=== PATIENT | female | born 1945 | race Caucasian/White ===

== ENCOUNTER 2018-04-03 05:40 | Day surgery (SDC) | payer MEDICARE, OTHER ==
[~2018-04-03] VITALS: Ht 157.5 cm; Wt 57.1 kg
[~2018-04-03 05:40] MED LIST: CALTRATE 600 +1 EAC1 PO; FLAXSEED OIL1000 M1 PO; SIMVASTATIN40 MG PO; VITAMIN B122500 MCG PO; VITAMIN D3400 UNI1 PO; VITAMIN E400 UNI6 PO
[2018-04-03] MEDS ORDERED: KEFLEX500 MG PO (06:11)
--- NOTE | 2018-04-03 08:42 | NUR ---
[facility]18 [facility] PACU WIDE AWAKE WITH NO C/O'S. 0840 OXYGEN REMOVED. SATS 99% ON RA.
== END 2018-04-03 09:10 | disposition home or self-care (01) ==
LOC: DS 05:40 → OPS 05:40 → DS 06:45 → OPS 09:10
PROVIDERS: Podiatrist Foot Surgery
PROC: 0SNP0ZZ Release Right Toe Phalangeal Joint, Open Approach (ICD-10-PCS; principal; 2018-04-03 06:45)
DX: M20.41 Other hammer toe(s) (acquired), right foot (principal); S93.524A Sprain of metatarsophalangeal joint of right lesser toe(s), initial encounter; M24.50 Contracture, unspecified joint; Z79.899 Other long term (current) drug therapy
CPT/HCPCS: 01480; 73630; C1713; C1763; J0690; J1100; J2250; J2704; J2795; J3010; J7120

== ENCOUNTER 2023-07-30 07:23 | Day surgery (SDC) | payer MEDICARE, OTHER ==
[~2023-07-30] VITALS: Ht 154.9 cm; Wt 56.8 kg
[~2023-07-30 07:23] MED LIST changes: +AMBIEN10 MG PO; +BIOTIN10000 MC1 PO; +CALTRATE 600+D1 EAC1 PO; +CEFAZOLIN SODIUM 2 GM/20 ML SYR IV SCH; +CELECOXIB200 MG PO; +CEPHALEXIN500 MG PO; +FISH OIL 1,2001 EACH PO; +GABAPENTIN300 MG PO; +IBLOOD GLUCOSE TEST STRIP 1 EA TEST VI PRN; +KEFLEX500 MG PO; +LACTATED RINGER'S 1,000 ML IV SCH; +LIDOCAINE HCL 1% 5 ML SDV INJ ONE; +MIDAZOLAM HCL 5 MG/5 ML VIAL IV PRN; +MUPIROCIN22 GM TOP; +OXYCODONE HCL5 MG PO; +PERFECT IRON25 MG PO; +PRAVASTATIN SOD40 MG PO; +PROPRANOLOL HCL10 MG PO; +SENNA LAX8.6 MG PO; +TRAMADOL HCL50 MG PO; +VITAMIN E100 UNI2 PO; +XARELTO10 MG PO; +ZOLPIDEM TARTRA10 MG PO; +fentaNYL citrate 100 MCG/2 ML VIAL IV PRN
[2023-07-30 07:36] VITALS: BP 151/81
[2023-07-30] MEDS ORDERED: B12 ACTIVE1000 MCG PO (07:41)
[2023-07-30] MEDS ORDERED: VITAMIN D310 MC4 PO (07:42)
[2023-07-30] MEDS ORDERED: BIOTIN1 M1 PO (07:42)
[2023-07-30] MEDS ORDERED: MIDAZOLAM HCL 5 MG/5 ML VIAL ONE (08:09)
[2023-07-30] MEDS ORDERED: fentaNYL citrate 100 MCG/2 ML VIAL ONE (08:09)
[2023-07-30] MEDS ORDERED: ondansetron HCL 4 MG/2 ML VIAL ONE (08:20)
--- NOTE | 2023-07-30 09:14 | NUR ---
07/30/23 0914 Sana Pro 0904- PT ARRIVES TO PACU REACTIVE TO VOICE. PT REPORTS NO PAIN OR NAUSEA. FALLS TO SLEEP QUICKLY WHEN NOT BEING TALKED TO. RESP EVEN AND UNLABORED. OXYGEN SAT HIGH 90'S TO 100% ON 2L VIA CO2 NC. 0906- PT PASSING FLATUS. 0914- DR. MUÑIZ AT THE BEDSIDE TO TALK WITH THE PT.
[2023-07-30 09:38] VITALS: BP 160/79
--- NOTE | 2023-07-31 12:39 | OR ---
[facility] [address], [place] [address] Signed DATE OF OPERATION: 07/30/2023 SURGEON: Kristine Muñiz MD PREOPERATIVE DIAGNOSES: Colon screening; history of constipation. POSTOPERATIVE DIAGNOSES: Sigmoid diverticulosis and internal hemorrhoids, otherwise negative. PROCEDURE: Total colonoscopy to cecum. ANESTHESIA: Intravenous sedation; fentanyl 100 mcg, Versed 3 mg and preoperative antibiotic Ancef 2 g and antiemetic Zofran 4 mg. INDICATION: This 78-year-old white woman is a patient of ASHLEY Weiss. She underwent colonoscopy in [place] in 2007 for constipation indications, which showed no concerning findings. She has no family history of colon cancer. She underwent colonoscopy by Dr. Gore in [place] in 2019 was said to have at least two polyps. She also had internal hemorrhoids. She currently has no symptoms of bleeding, diarrhea, or constipation and no family history of colon cancer. She is admitted at this time to undergo colonoscopy for surveillance. She understands the risk of bleeding, infection, and perforation. FINDINGS: The prep was good. Complete colonoscopy was undertaken to the cecum with full intubation of the cecum. She had numerous diverticula of the sigmoid and left colon. There were internal hemorrhoids but no sign of bleeding or thrombosis. DESCRIPTION OF PROCEDURE: The patient was brought to the endoscopy suite and placed in the lateral decubitus position, given intravenous sedation to the point of slurred speech and nystagmus. Digital rectal examination was normal. An Olympus video colonoscope was passed in the rectum and manipulated throughout the colon noting numerous diverticula of the sigmoid and left colon. The scope was ultimately advanced to the cecum. The ileocecal valve and appendiceal orifice were Electronically Signed By: KRISTINE MUÑIZ MD 07/31/23 1239 PATIENT NAME: CYN ORTIZ OPERATIVE REPORT DATE OF : 45 REPORT #: [id number] PHYSICIAN: KRISTINE MUÑIZ MD PCP: ARIEL FLYNN REPORT IS CONFIDENTIAL AND NOT TO BE RELEASED WITHOUT AUTHORIZATION [facility] [address], [place] [address] Signed normal. The scope was withdrawn from that point and examination throughout showed no sign of abnormality other than the diverticulosis and internal hemorrhoids of the anorectal area. The scope was removed and the patient was taken to the recovery room in good condition. CONCLUDING DIAGNOSES: No evidence of polyps; diverticulosis and internal hemorrhoids. PLAN: Recommend high-fiber diet. Would recommend repeat if symptoms should occur or at 10 years considering prior history of polyps if appropriate at an advanced age. She will return to the ongoing care of ASHLEY Weiss. MD JAREN Cesar/MATTL /[id number] cc: ASHLEY Weiss Copies: ARIEL FLYNN ~ Electronically Signed By: KRISTINE MUÑIZ MD 07/31/23 1239 PATIENT NAME: CYN ORTIZ JESUS OPERATIVE REPORT DATE OF : 45 REPORT #: [id number] PHYSICIAN: KRISTINE MUÑIZ MD PCP: ARIEL FLYNN REPORT IS CONFIDENTIAL AND NOT TO BE RELEASED WITHOUT AUTHORIZATION
== END 2023-07-30 09:45 | disposition home or self-care (01) ==
LOC: OPS 07:23 → DS 07:23 → OPS 08:30 → DS 08:30 → OPS 09:45
PROVIDERS: ATTEND Surgery
PROC: 0DJD8ZZ Inspection of Lower Intestinal Tract, Via Natural or Artificial Opening Endoscopic (ICD-10-PCS; principal; 2023-07-30 08:30)
DX: Z12.11 Encounter for screening for malignant neoplasm of colon (principal); K57.30 Diverticulosis of large intestine without perforation or abscess without bleeding; K64.8 Other hemorrhoids; E78.5 Hyperlipidemia, unspecified; Z86.010 Personal history of colon polyps; Z96.659 Presence of unspecified artificial knee joint; Z79.899 Other long term (current) drug therapy
CPT/HCPCS: J0690; J2250; J2405; J3010; J7121